=== PATIENT | female | born 1995 | race Asian ===

== ENCOUNTER 2016-12-10 20:21 | Emergency (ER) | payer BC ==
[~2016-12-10] VITALS: Ht 160 cm; Wt 76.2 kg
[~2016-12-10 20:21] MED LIST: CIPR500T4 PO; D-ME118S6 PO; IBUP-1542 PO; ONDA4TAB8 PO; PEN500 PO; PHEN177S43 MT
[2016-12-10 20:48] VITALS: Ht 160 cm; Wt 76.2 kg
[2016-12-10 21:35] VITALS: PULSE 98; TEMP 99
[2016-12-10] MEDS ORDERED: ONDA4TAB14 PO (21:36)
[2016-12-10] MEDS ORDERED: AMO500 PO (21:36)
[2016-12-10] MEDS ORDERED: IBUP-1542 PO (21:36)
[2016-12-10] MEDS ORDERED: ACET500C5 PO (21:36)
--- NOTE | 2016-12-10 21:46 | ERD ---
ER Documentation Chief Complaint Date/Time DATE: 12/10/16 TIME: 21:[address] for 3 days pt took motrin 200mg at 2000 HPI 21-year-old female presents here in emergency department for complaints of sore throat for 3 days. Patient complains of sore throat, burning pain, 6/10 scale, is worse upon swallowing. Patient has been having on and off fever. Patient took Motrin to help with fever control with mild relief. Patient denies any stridor or shortness breath. Patient denies any cough. Patient denies any dizziness. Patient is nauseous sometimes because of the pain. Patient denies any abdominal pain. Patient denies any other symptoms. ROS All systems reviewed and are negative except as per history of present illness. Medications Home Meds Active Scripts Ondansetron (Ondansetron Odt) 4 Mg Tab.rapdis, 4 MG PO Q8 Y for NAUSEA AND/OR VOMITING, #30 TAB Prov:TED BROTHERS NP 12/10/16 Amoxicillin* (Amoxicillin*) 500 Mg Cap, 500 MG PO TID for 10 Days, CAP Prov:TED BROTHERS SKIP MINER 12/10/16 Acetaminophen* (Tylophen*) 500 Mg Capsule, 1 CAP PO Q6H Y for PAIN AND OR ELEVATED TEMP, #20 CAP Prov:TED BROTHERS NP 12/10/16 Ibuprofen* (Motrin*) 600 Mg Tab, 600 MG PO Q6H Y for PAIN AND OR ELEVATED TEMP, #30 TAB Prov:TED BROTHERS NP 12/10/16 Phenol* (Chloraseptic* [place]) 177 Ml [place].pump, 2 SPRAY MT Q2H Y for SORE THROAT, #1 BOTTLE Prov:CLAUDINE JIMENES DO 01/15/16 Dextromethorphan Hb-Promethazine Hcl (Promethazine DM Syrup) 180 Ml Syrup, 5 ML PO Q6H Y for COUGH, #4 OZ Prov:CLAUDINE JIMENES DO 01/15/16 Ciprofloxacin Hcl* (Ciprofloxacin Hcl*) 500 Mg Tablet, 500 MG PO BID for 7 Days , TAB Prov:CLAUDINE JIMENES DO 01/15/16 Ondansetron Hcl* (Zofran*) 4 Mg Tablet, 4 MG PO Q6H for NAUSEA AND/OR VOMITING, #30 TAB Prov:DAWOOD SANTANA MARLO-Dex 01/13/16 Penicillin V Potassium* (Penicillin V K*) 500 Mg Tab, 500 MG PO BID for 10 Days , TAB Prov:DAWOOD SANTANA MARLO-Dex 01/13/16 Ibuprofen* (Motrin*) 600 Mg Tab, 600 MG PO Q6, #30 TAB Prov:KAROLINA NEFF 12/08/15 Allergies Allergies: Coded Allergies: No Known Allergy (Unverified , 08/29/13) PMhx/Soc Medical and Surgical Hx: pt denies Medical Hx, pt denies Surgical Hx History of Surgery: No Anesthesia Reaction: No Hx Neurological Disorder: No Hx Respiratory Disorders: No Hx Cardiac Disorders: No Hx Psychiatric Problems: No Hx Miscellaneous Medical Probl: No Hx Alcohol Use: No Hx Substance Use: No Hx Tobacco Use: No FmHx Family History: No coronary disease, No diabetes, No other Physical Exam Vitals Vital Signs Date Time Temp Pulse Resp B/P Pulse Ox O2 Delivery O2 Flow Rate FiO2 12/10/16 21:35 99.0 98 12/10/16 20:48 99.6 113 18 121/83 98 Physical Exam GENERAL: The patient is well developed and appropriate for usual state of health, in no apparent distress. HEENT: Atraumatic. Ears: Normal tympanic membrane, no erythema or bulging. No ear canal swelling. No ear discharge. Nose: normal nasal turbinates, no erythema or swelling. Normal nasal discharge. Throat: oropharynx erythematous with + tonsillar swelling and tonsillar exudates noted. No lymphadenopathy. CHEST: Clear to auscultation bilaterally. There are no rales, wheezes or rhonchi. HEART: Regular rate and rhythm. No murmurs, clicks, rubs or gallops. No S3 or S4. ABDOMEN: Soft, nontender and nondistended. Good bowel sounds. No rebound or guarding. No gross peritonitis. No gross organomegaly or masses. No Head sign or McBurney point tenderness. BACK: No midline or flank tenderness. EXTREMITIES: Equal pulses bilaterally. There is no peripheral clubbing, cyanosis or edema. No focal swelling or erythema. Full range of motion. Grossly neurovascularly intact. NEURO: Alert and oriented. Cranial nerves 2-12 intact. Motor strength in all 4 extremities with 5/5 strength. Sensation grossly intact. Normal speech and gait. SKIN: There is no apparent rash or petechia. The skin is warm and dry. HEMATOLOGIC AND LYMPHATIC: There is no evidence of excessive bruising or lymphedema. No gross cervical, axillary, or inguinal lymphadenopathy. Procedures/MDM Medical decision making: Patient symptoms is likely consistent with acute bacterial pharyngitis, most likely consistent with strep throat. No symptoms of peritonsillar abscess, laryngitis, epiglottitis, no symptoms of oral airway obstruction noted. No symptoms of sepsis at this time. Patient appears well and is hemodynamically stable.vital signs were rechecked, heart rate is improved, temperature improved. Patient was given prescription for amoxicillin, ibuprofen , Tylenol, Zofran, is advised to do salt water gargles, rest, drink a lot of water. Patient was advised to return to emergency department for any worsening symptoms Departure Diagnosis: Primary Impression: Acute bacterial pharyngitis Condition: Stable Patient Instructions: Pharyngitis, Strep (Presumed) TED BROTHERS NP Dec 10, 2016 21:46
== END 2016-12-10 21:38 | disposition home or self-care (01) ==
LOC: E/R 20:21
DX: J02.8 Acute pharyngitis due to other specified organisms (principal); B96.89 Other specified bacterial agents as the cause of diseases classified elsewhere; R11.0 Nausea
CPT/HCPCS: 99284

== ENCOUNTER 2016-12-23 23:22 | Emergency (ER) | payer BC ==
[~2016-12-23] VITALS: Ht 154.9 cm; Wt 77.5 kg
[~2016-12-23 23:22] MED LIST changes: +ACET500C5 PO; +AMO500 PO; +ONDA4TAB14 PO
[2016-12-23 23:25] VITALS: Ht 154.9 cm; Wt 77.5 kg
--- NOTE | 2016-12-24 02:45 | ERD ---
ER Documentation Chief Complaint Date/Time DATE: 12/24/16 TIME: 02:44 Chief Complaint cough x 2 weeks. also c/o vomiting HPI 21-year-old female presents here in emergency department for complaints of cough for 2 weeks, patient has been coughing too much, has posttussive vomiting afterwards. Patient has been dry cough, does not cough up any phlegm or blood. Patient does not have any shortness breath or wheezing. Patient denies any runny nose or nasal congestion. Patient denies any fever or chills. Patient denies any sick contacts. ROS All systems reviewed and are negative except as per history of present illness. Medications Home Meds Active Scripts Azithromycin* (Zithromax*) 250 Mg Tablet, 250 MG PO .ZPACK DIRECTED, #6 TAB TAKE 500 MG (2 TABS) THE FIRST DAY THEN 250 MG (1 TAB) DAYS 2-5 Prov:TED BROTHERS NP 12/24/16 Albuterol Sulfate* (Proair HFA*) 8.5 Gm Hfa.aer.ad, 2 PUFF INH Q4H Y for WHEEZING AND SOB, #1 INHALER Prov:TED BROTHERS NP 12/24/16 Cetirizine Hcl* (Zyrtec*) 10 Mg Capsule, 10 MG PO DAILY, #30 TAB.CHEW Prov:TED BROTHERS NP 12/24/16 Guaifenesin-Codeine Phosphate* (Guaifenesin* AC Cough Syrup) 473 Ml Liquid, 5 ML PO Q4H Y for COUGH, #60 ML Prov:TED BROTHERS NP 12/24/16 Ondansetron (Ondansetron Odt) 4 Mg Tab.rapdis, 4 MG PO Q8 Y for NAUSEA AND/OR VOMITING, #30 TAB Prov:TED BROTHERS NP 12/10/16 Amoxicillin* (Amoxicillin*) 500 Mg Cap, 500 MG PO TID for 10 Days, CAP Prov:TED BROTHERS NP 12/10/16 Acetaminophen* (Tylophen*) 500 Mg Capsule, 1 CAP PO Q6H Y for PAIN AND OR ELEVATED TEMP, #20 CAP Prov:TED BROTHERS NP 12/10/16 Ibuprofen* (Motrin*) 600 Mg Tab, 600 MG PO Q6H Y for PAIN AND OR ELEVATED TEMP, #30 TAB Prov:TED BROTHERS NP 12/10/16 Phenol* (Chloraseptic* [place]) 177 Ml [place].pump, 2 SPRAY MT Q2H Y for SORE THROAT, #1 BOTTLE Prov:YUDYCLAUDINE ORDAZ DO 01/15/16 Dextromethorphan Hb-Promethazine Hcl (Promethazine DM Syrup) 180 Ml Syrup, 5 ML PO Q6H Y for COUGH, #4 OZ Prov:YUDYCLAUDINE DO 01/15/16 Ciprofloxacin Hcl* (Ciprofloxacin Hcl*) 500 Mg Tablet, 500 MG PO BID for 7 Days , TAB Prov:[facility] 01/15/16 Ondansetron Hcl* (Zofran*) 4 Mg Tablet, 4 MG PO Q6H for NAUSEA AND/OR VOMITING, #30 TAB Prov:DAWOOD SANTANA PA-C 01/13/16 Penicillin V Potassium* (Penicillin V K*) 500 Mg Tab, 500 MG PO BID for 10 Days , TAB Prov:DAWOOD SANTANA PA-C 01/13/16 Ibuprofen* (Motrin*) 600 Mg Tab, 600 MG PO Q6, #30 TAB Prov:KAROLINA NEFF 12/08/15 Allergies Allergies: Coded Allergies: No Known Allergy (Unverified , 08/29/13) PMhx/Soc Medical and Surgical Hx: pt denies Medical Hx, pt denies Surgical Hx History of Surgery: No Anesthesia Reaction: No Hx Neurological Disorder: No Hx Respiratory Disorders: No Hx Cardiac Disorders: No Hx Psychiatric Problems: No Hx Miscellaneous Medical Probl: No Hx Alcohol Use: No Hx Substance Use: No Hx Tobacco Use: No Smoking Status: Never smoker FmHx Family History: No coronary disease, No diabetes, No other Physical Exam Vitals Vital Signs Date Time Temp Pulse Resp B/P Pulse Ox O2 Delivery O2 Flow Rate FiO2 12/24/16 04:57 110 20 121/78 97 Room Air 12/23/16 23:25 99.0 109 20 145/84 100 Physical Exam GENERAL: The patient is well developed and appropriate for usual state of health, in no apparent distress. CHEST: Clear to auscultation bilaterally. There are no rales, wheezes or rhonchi. HEART: Regular rate and rhythm. No murmurs, clicks, rubs or gallops. No S3 or S4. ABDOMEN: Soft, nontender and nondistended. Good bowel sounds. No rebound or guarding. No gross peritonitis. No gross organomegaly or masses. No Head sign or McBurney point tenderness. BACK: No midline or flank tenderness. EXTREMITIES: Equal pulses bilaterally. There is no peripheral clubbing, cyanosis or edema. No focal swelling or erythema. Full range of motion. Grossly neurovascularly intact. NEURO: Alert and oriented. Cranial nerves 2-12 intact. Motor strength in all 4 extremities with 5/5 strength. Sensation grossly intact. Normal speech and gait. SKIN: There is no apparent rash or petechia. The skin is warm and dry. HEMATOLOGIC AND LYMPHATIC: There is no evidence of excessive bruising or lymphedema. No gross cervical, axillary, or inguinal lymphadenopathy. Results 24 hrs PROCEDURE: Chest. CLINICAL INDICATION: Cough. TECHNIQUE: Single frontal view of the chest was obtained. COMPARISON: None. FINDINGS: The cardiac silhouette is within normal limits. The aortic arch is unremarkable. There is mild left basilar atelectasis/infiltrate. There is no vascular congestion or pleural effusion. There is no pneumothorax. IMPRESSION: Mild left basilar atelectasis/infiltrate. .Get Blake MD, MD Date Time Electronically viewed and signed by .Get Blake MD, MD on 12/24/2016 03:12 .T/ CC: TED BROTHERS BOILER CLEANER Procedures/MDM Medical Decision Making: Patient symptoms are most likely consistent with pneumonia as seen in the x-ray. Patient management is appropriate at this time since patient O2 saturation is normal and patient doesnt show any respiratory distress. Patients chest xray doesnt show infiltrates or any other cardiopulmonary emergencies at this time. There is low suspicion for other cardiopulmonary emergencies at this time such as CHF, Pulmonary Embolism, Pneumothorax, Aortic Aneurysm or any other cardiopulmonary emergencies at this time. There is low suspicion for sepsis. Patient appears well and is hemodynamically stable. She does not have any fever. Disposition: Home. Condition: Stable Prescriptions: Guaifenesin with codeine, Zyrtec, ibuprofen, albuterol, azithromycin Instructions: Patient is advised to take medications as prescribed. Patient is advised to rest. Patient advised to increase fluid intake, do humidifier at home and if possible, do salt water gargles. Patient is advised that if symptoms are worse, shortness of breath, uncontrolled fever, stridor, vomiting, worst signs and symptoms to return to emergency department immediately. Otherwise, patient is advised to follow up with primary doctor in 5-7 days. Departure Diagnosis: Primary Impression: Pneumonia Pneumonia type: due to unspecified organism Laterality: left Lung location : unspecified part of lung Qualified Code: J18.9 - Pneumonia of left lung due to infectious organism, unspecified part of lung Condition: Stable Patient Instructions: Pneumonia (Adult) Additional Instructions: Patient is advised to take medications as prescribed. Patient is advised to rest. Patient advised to increase fluid intake, do humidifier at home and if possible, do salt water gargles. Patient is advised that if symptoms are worse, shortness of breath, uncontrolled fever, stridor, vomiting, worst signs and symptoms to return to emergency department immediately. Otherwise, patient is advised to follow up with primary doctor in 5-7 days. TED BROTHERS NP Dec 24, 2016 02:44
--- NOTE | 2016-12-24 03:12 | RADRPT ---
PROCEDURE: Chest. CLINICAL INDICATION: Cough. TECHNIQUE: Single frontal view of the chest was obtained. COMPARISON: None. FINDINGS: The cardiac silhouette is within normal limits. The aortic arch is unremarkable. There is mild lef t basilar atelectasis/infiltrate. There is no vascular congestion or pleural effusion. There is no pneumothorax. IMPRESSION: Mild left basilar atelectasis/infiltrate. .Get Blake MD, MD Date Time Electronically viewed and signed by .Get Blake MD, on 12/24/2016 03:12 .T/
[2016-12-24] MEDS ORDERED: AZIT250T94 PO (04:22)
[2016-12-24] MEDS ORDERED: ALBU8.5H3 INH (04:22)
[2016-12-24] MEDS ORDERED: GUAI473L22 PO (04:22)
[2016-12-24] MEDS ORDERED: CETI10CA PO (04:22)
[2016-12-24 04:57] VITALS: BP 121/78; PULSE 110; RESP 20
== END 2016-12-24 04:45 | disposition home or self-care (01) ==
LOC: FTE 23:22
DX: J18.9 Pneumonia, unspecified organism (principal)
CPT/HCPCS: 71010; Z7502

== ENCOUNTER 2019-06-01 07:17 | Emergency (ER) | payer BC ==
[~2019-06-01] VITALS: Ht 154.9 cm; Wt 83.7 kg
[~2019-06-01 07:17] MED LIST changes: +ALBU8.5H8 INH; -AMO500 PO; +AMOX500C2 PO; +AZIT250T PO; +BEN25 PO; +CEPH-443 PO; +CETI10CA PO; +GUAI473L22 PO; -PEN500 PO; +PENI500T PO; +TRIA15CR55 TOP
[2019-06-01 07:21] VITALS: BP 128/85; PULSE 92; RESP 17; Ht 154.9 cm; Wt 83.7 kg
--- NOTE | 2019-06-01 08:18 | ERD ---
ER Documentation Chief Complaint Chief Complaint SWELLING ON LEFT UPPER ARM X3 DAYS, POSSIBLE INSECT BITE HPI 24-year-old female presenting with swelling to the left upper arm x3 days. Pat francisca states that the area is very itchy and has become red and swollen. She denies any fevers and has been using cortisone with no alleviation. Denies other medical problems. NKDA. Surgical history denies. Social history denies ROS All systems reviewed and are negative except as per history of present illness. Medications Home Meds Active Scripts Diphenhydramine Hcl* (Benadryl*) 25 Mg Cap, 25 MG PO Q6, #30 CAP Prov:DAWOOD SANTANA PA-C 06/01/19 Triamcinolone Acetonide (Triamcinolone Acetonide) 0.1% - 15 Gm Cream.gm., 1 APPLIC TOP BID, #1 TUB Prov:DAWOOD SANTANA PA-C 06/01/19 Cephalexin* (Keflex*) 500 Mg Capsule, 500 MG PO QID for 7 Days, CAP Prov:DAWOOD SANTANA PA-C 06/01/19 Azithromycin* (Zithromax*) 250 Mg Tablet, 250 MG PO .ZPACK DIRECTED, #6 TAB TAKE 500 MG (2 TABS) THE FIRST DAY THEN 250 MG (1 TAB) DAYS 2-5 Prov:TED BROTHERS NP 12/24/16 Albuterol Sulfate* (Proair HFA*) 8.5 Gm Hfa.aer.ad, 2 PUFF INH Q4H PRN for WHEEZING AND SOB, #1 INHALER Prov:TED BROTHERS NP 12/24/16 Cetirizine Hcl* (Zyrtec*) 10 Mg Capsule, 10 MG PO DAILY, #30 TAB.CHEW Prov:ETD BROTHERS NP 12/24/16 Guaifenesin-Codeine Phosphate* (Guaifenesin* AC Cough Syrup) 473 Ml Liquid, 5 ML PO Q4H PRN for COUGH, #60 ML Prov:TED BROTHERS NP 12/24/16 Ondansetron (Ondansetron Odt) 4 Mg Tab.rapdis, 4 MG PO Q8 PRN for NAUSEA AND/OR VOMITING, #30 TAB Prov:TED BROTHERS ITEM PROCESSING CLERK 12/10/16 Amoxicillin* (Amoxicillin*) 500 Mg Cap, 500 MG PO TID for 10 Days, CAP Prov:TED BROTHERS ITEM PROCESSING CLERK 12/10/16 Acetaminophen* (Tylophen*) 500 Mg Capsule, 1 CAP PO Q6H PRN for PAIN AND OR ELEVATED TEMP, #20 CAP Prov:TED BROTHERS ITEM PROCESSING CLERK 12/10/16 Ibuprofen* (Motrin*) 600 Mg Tab, 600 MG PO Q6H PRN for PAIN AND OR ELEVATED TEMP, #30 TAB Prov:TED BROTHERS ITEM PROCESSING CLERK 12/10/16 Phenol* (Chloraseptic* [place]) 177 Ml [place].pump, 2 SPRAY MT Q2H PRN for SORE THROAT, #1 BOTTLE [facility] 01/15/16 Dextromethorphan Hb-Promethazine Hcl (Promethazine DM Syrup) 180 Ml Syrup, 5 ML PO Q6H PRN for COUGH, #4 OZ Prov:[facility] 01/15/16 Ciprofloxacin Hcl* (Ciprofloxacin Hcl*) 500 Mg Tablet, 500 MG PO BID for 7 Days, TAB Prov[facility] 01/15/16 Ondansetron Hcl* (Zofran*) 4 Mg Tablet, 4 MG PO Q6H for NAUSEA AND/OR VOMITING, #30 TAB Prov:DAWOOD SANTANA PA-C 01/13/16 Penicillin V Potassium* (Penicillin V K*) 500 Mg Tab, 500 MG PO BID for 10 Days, TAB Prov:DAWOOD SANTANA PA-C 01/13/16 Ibuprofen* (Motrin*) 600 Mg Tab, 600 MG PO Q6, #30 TAB Prov:KAROLINA NEFF 12/08/15 Allergies Allergies: Coded Allergies: No Known Allergy (Unverified , 08/29/13) PMhx/Soc Medical and Surgical Hx: pt denies Medical Hx, pt denies Surgical Hx History of Surgery: No Anesthesia Reaction: No Hx Neurological Disorder: No Hx Respiratory Disorders: No Hx Cardiac Disorders: No Hx Psychiatric Problems: No Hx Miscellaneous Medical Probl: No Hx Alcohol Use: No Hx Substance Use: No Hx Tobacco Use: No FmHx Family History: No diabetes, No coronary disease, No other Physical Exam Vitals Vital Signs Date Temp Pulse Resp B/P (MAP) Pulse Ox O2 O2 Flow FiO2 Time Delivery Rate 06/01/19 98.3 92 17 128/85 100 07:21 (99) Physical Exam GENERAL: The patient is well-appearing, well-nourished, in no acute distress CHEST: Clear to auscultation bilaterally. There are no rales, wheezes or rhonchi. HEART: Regular rate and rhythm. No murmurs, clicks, rubs or gallops ABDOMEN:Soft, nontender and nondistended. Good bowel sounds. No rebound or guarding. No gross peritonitis. No gross organomegaly or masses. EXTREMITIES: Equal pulses bilaterally. There is no peripheral clubbing, cyanosis or edema. No focal swelling or erythema. Full range of motion. G rossly neurovascularly intact. NEUROLOGIC: Alert and oriented. Cranial nerves II through XII intact. Motor strength in all 4 extremities with 5 out of 5 strength. Sensation grossly intact. Normal speech and gait. SKIN: Erythema noted to the left upper extremity with mild swelling. No lymphatic streaking and no fluctuance. Mild induration. Procedures/MDM MDM: 24-year-old female presenting with redness to the left upper arm. I have low suspicion for lymphatic streaking or abscess formation. Patient likely has irritation secondary to insect bite and will be treated with supportive medications. There may be early cellulitic changes so I will treat with antibiotics however I have low suspicion for deep abscess at this time. Patient is discharged with strict ER precautions and told to follow-up with primary care within 1 to 2 days for close evaluation. All questions answered at discharge Departure Diagnosis: Primary Impression: Skin irritation Additional Impression: Swelling Condition: Stable Patient Instructions: Cellulitis Additional Instructions: FOLLOW UP WITH YOUR PRIMARY CARE PHYSICIAN TOMORROW.Return to this facility if you are not improving as expected. DAWOOD SANTANA PA-C Jun 01, 2019 08:18
== END 2019-06-01 07:48 | disposition home or self-care (01) ==
LOC: FTE 07:17
DX: L98.8 Other specified disorders of the skin and subcutaneous tissue (principal)
CPT/HCPCS: 99283